=== PATIENT | female | born 2000 | race Caucasian/White ===

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

== ENCOUNTER 2022-03-08 11:19 | Emergency (ER) | payer BC ==
--- OUTSIDE RECORDS SUMMARY | 2022-03-08 11:21 | XMS REPORT | Continuity of Care Document ---
:2000 Author Organization [facility] t Address [address] [place] [address] Care Team Providers Name Role Phone SELINA SCHERER Primary Care Physician Unavailable Margarita Little PA-C Attending Clinician Baljeet Nielson MD Attending Clinician BALJEET NIELSON Attending Clinician Unavailable SELINA SCHERER Attending Clinician Unavailable Doctor Unassigned, [place] Attending Clinician Unavailable MARGARITA LITTLE Attending Clinician Unavailable SOURAV SYED Attending Clinician Unavailable Payers Payer Name Policy Type Policy Number Effective Date Expiration Date S ource Problems Condition Condition Condition Status Onset Resolution Last Treating Co mments Source Name Details Category Date Date Treatment Clinician Date Rash and Rash and Disease Active Unive rs other other 05-21 ity of nonspecifi [place] skin c skin 00 Medical eruption eruption Branch Encounter Encounter Disease Active Uni vers to to 05-21 [place] establish [place] Need for Need for Disease Active Unive rs hepatitis hepatitis 05-21 ity of C C 00:00: [place] screening screening 00 Medi marine test test Branch Obesity Obesity Disease Active 2019-03 Univers (BMI (BMI 2-14 ity of 30-39.9) 30-39.9) 00:00: [place] 00 Medical Branch Allergies, Adverse Reactions, Alerts Allergy Allergy Status Severity Reaction(s) Onset Inactive Treating Comm ents Source Name Type Date Date Clinician NO KNOWN Drug Active Univers ALLERGIE Class ity of S [facility] Social History Social Habit Start Date Stop Date Quantity Comments Source Exposure to Not sure University SARS-CoV-2 [place] [facility] (event) Branch Alcohol intake 2021-06-10 2021-06-10 Current [facility] 00:00:00 00:00:00 non-drinker of [facility] alcohol [place] (finding) Tobacco use and 2018-07-29 2018-07-29 Never used Universit y of exposure 00:00:00 00:00:00 [facility] Sex Assigned At [birth year] Universit y of 00:00:00 00:00:00 [facility] Smoking Status Start Date Stop Date Source Never smoker [facility] Medications Ordered Filled Start Stop Current Ordering Indication Dosage Frequency Signature Comments Components Source Medication Medication Date Date Medication? Clinician (SIG) Name Name metroNIDAZO 2019-03- No [id number] 500mg Take 1 Univers LE 500 mg 05-14 tablet by ity of tablet 00:00: 00:00 mouth [place] 00 :00 every 12 Medical (twelve) Branch hours. SERTraline 2021- No Univer s 100 mg 05-08 ity of tablet 00:00: 00:00 [place] 00 :00 [facility] Branch Immunizations Ordered Filled Immunization Date Status Comments Sourc e Immunization Name Name HPV9 2021-06-10 Completed [facility] 00:00:00 [facility] Vital Signs Vital Name Observation Time Observation Value Comments Source Systolic blood 2021-06-10 20:22:00 102 mm[Hg] Univer sity of pressure [facility] Diastolic blood 2021-06-10 20:22:00 68 mm[Hg] Unive rsity of pressure [facility] Heart rate 2021-06-10 20:22:00 100 /min [facility] Body temperature 2021-06-10 20:22:00 36.44 Kylah [facility] 2021-06-10 20:22:00 18 /min [facility] Body height 2021-06-10 20:22:00 167.6 cm [facility] Body weight 2021-06-10 20:22:00 60.782 kg [facility] BMI 2021-06-10 20:22:00 21.63 kg/m2 [facility] Procedures Procedure Date / Time Performed Performing Clinician Giselle lorenzo GARDASIL 9 (HPV 9V) 2021-06-10 21:06:54 Baljeet Nielson [facility] Encounters Start End Encounter Admission Attending Care Care Encounter Source Date/Time Date/Time Type Type Clinicians Facility Department ID 2021-06-11 2021-06-11 [facility] [id number] Univers 00:00:00 00:00:00 Management Margarita SOTELO [id number] ity [facility] [id number] [address] 2021-06-10 2021-06-10 Office Baljeet Nielson [facility] [id number] Univers 15:00:00 15:30:00 Visit Anthony SOTELO [id number] i ty [facility] [id number] [id number] [address] 2021-06-10 2021-06-10 Outpatient BALJEET MOY [facility] [id number] Univers 15:00:00 15:00:00 ity of [facility] 2021-06-10 2021-06-10 Outpatient BALJEET MOY [facility] [id number] Univers 15:00:00 15:00:00 ity of [facility] 2021-05-23 2021-05-23 Outpatient Jairo SCHERER [facility] [id number] Univers 07:45:00 07:45:00 SELINA miller [facility] 2021-05-21 2021-05-21 Outpatient Jairo SCHERER [facility] [id number] Univers 15:00:00 15:36:56 SELINA miller [facility] 2021-05-21 2021-05-21 Kirby SANTIZO [id number] Univers 00:00:00 00:00:00 Only Unassigned, GEOVANNY [id number] ity [facility] [id number] [place] as [id number] [address] 2021-03-05 2021-03-05 [facility] [id number] Univers 10:00:00 10:00:00 MARGARITA [facility] 2020-03-09 2020-03-09 [facility] [id number] Univers 13:00:00 13:00:00 SOURAV miller [facility] 2020-03-05 2020-03-05 Outpatient [facility] [id number] Univers 09:30:00 09:30:00 MARGARITA [facility] 2019-11-21 2019-11-21 Outpatient [facility] [id number] Univers 14:00:00 14:00:00 MARGARITA [facility] 2019-08-02 2019-08-02 Outpatient [facility] [id number] Univers 09:00:00 09:00:00 [facility] Results This patient has no known results.
[2022-03-08] MEDS ORDERED: NA CHLORIDE 0.9% 1,000 ML ONE ×2 (11:39→13:19)
[2022-03-08] MEDS ORDERED: LORazepam 2 MG/ML VIAL ONE ×2 (11:39→11:58)
[2022-03-08 11:41] LABS: Absolute Lymphocytes (CBC) 1.1 K/uL (0.7-4.9); Hematocrit 42.2 % (36.0-45.0); Lymphocytes % 11.2 % (15.3-44.8); MCV 89.6 fL (80-100); MPV 7.7 fL (7.6-11.3); RBC Red Blood Cell Count 4.71 M/uL (3.86-4.86)
[2022-03-08 11:46] LABS: Urine Blood Trace-intact (Negative); Urine Glucose Negative (Negative); Urine Protein 2+ (Negative); Urine Specific Gravity >=1.030 (1.005-1.030); Urine pH 5.5 (5.0-7.0)
[2022-03-08 11:50] LABS: Protime INR 1.18
[2022-03-08] MEDS ORDERED: ZIPRASIDONE MESYLA 20 MG/VIAL IM ONE (11:56)
[2022-03-08] MEDS ORDERED: WATER FOR INJ,STERILE 10 ML ONE (11:56)
[2022-03-08 12:00] LABS: ALT/SGPT 21 U/L (13-56); AST/SGOT 14 U/L (15-37); Albumin 4.8 g/dL (3.4-5.0); Alkaline Phosphatase 58 U/L (45-117); BUN Blood Urea Nitrogen 16 mg/dL (7-18); Bicarbonate 21 mmol/L (21-32); Bilirubin Direct 0.3 mg/dL (0-0.2); Bilirubin Total 1.1 mg/dL (0.2-1.0); Glomerular Filtration Rate 73 ml/min (=/>90); Glucose Level 188 mg/dL (74-106); Protein, Total 8.3 g/dL (6.4-8.2); Sodium Level 133 mmol/L (136-145)
[2022-03-08 12:01] LABS: Barbiturates NEGATIVE (NEGATIVE); Benzodiazepines NEGATIVE (NEGATIVE); Cocaine NEGATIVE (NEGATIVE); METHAMPHETAM NEGATIVE (NEGATIVE); Methadone NEGATIVE (NEGATIVE); Opiates NEGATIVE (NEGATIVE); Phencyclidine NEGATIVE (NEGATIVE); THC Cannibis POSITIVE (NEGATIVE)
[2022-03-08] MEDS ORDERED: KCL 20 MEQ/100 mL IVPB 100 ML IV ONE (13:19)
--- NOTE | 2022-03-08 13:32 | ER ---
Nurse's Notes [facility] Name: Annalee Figueroa Age: 22 yrs Sex: Female : 2000 Arrival Date: 03/08/2022 Time: 11:19 Bed 16 Private MD: Diagnosis: Acute stress reaction;Restlessness and agitation Presentation: 03/08 11:27 Chief complaint: Pt brought to ED by sister who states that their other sister was ph killed in a car accident approx 1 week ago, pt has recently started acting erratically, was found naked in street stating that she has had a spiritual awakening. Pt presents to ER w/ AMS, stating repeatedly, " My body is right here, I just need nourishment." Sister states that pt has not made any suicidal or homicidal statements, denies mental health hx, states that pt is a daily user of marijuana and occasional drinker. Coronavirus screen: Vaccine status: Patient reports being unvaccinated. Ebola Screen: No symptoms or risks identified at this time. Initial Sepsis Screen: Does the patient meet any 2 criteria? No. Patient's initial sepsis screen is negative. Does the patient have a suspected source of infection? No. Patient's initial sepsis screen is negative. Risk Assessment: Do you want to hurt yourself or someone else? Patient reports no desire to harm self or others. Onset of symptoms was March 08, 2022. 11:27 Method Of Arrival: Ambulatory 11:27 Acuity: LELIA 2 Triage Assessment: 11:35 General: Appears in no apparent distress. Behavior is anxious, restless. Pain: Unable ph to use pain scale. Does not appear to understand pain scale. Neuro: Level of Consciousness is awake, alert, obeys commands, Oriented to person, place, situation. Cardiovascular: Capillary refill < 3 seconds in bilateral fingers Patient's skin is warm and dry. Respiratory: Airway is patent Respiratory effort is even, labored. Historical: - Allergies: 11:34 No Known Allergies; ph - PMHx: 11:34 Anxiety; ph - Immunization history:: Adult Immunizations unknown. - Social history:: Smoking status: Patient denies any tobacco usage or history of. Patient uses alcohol, occasionally. street drugs, marijuana. - Family history:: not pertinent. - Hospitalizations: : No recent hospitalization is reported. Screenin:20 Abuse screen: Denies threats or abuse. Nutritional screening: No deficits noted. mb9 Tuberculosis screening: No symptoms or risk factors identified. 11:20 [facility] ED Fall Risk Assessment (Adult) History of falling in the last 3 months, mb9 including since admission No falls in past 3 months (0 pts) Confusion or Disorientation No (0 pts) Intoxicated or Sedated No (0 pts) Impaired Gait No (0 pts) Mobility Assist Device Used No (0 pt) Altered Elimination No (0 pt) Score/Fall Risk Level 0 - 2 = Low Risk. Assessment: 11:25 General: Appears uncomfortable, Behavior is anxious. General: pt states "I need mb9 nourishment for my body. I can't remember last time I ate or drank anything." Pt denies suicidal ideation. Pain: Denies pain. Neuro: Level of Consciousness is awake, alert, Oriented to person, place, time. Cardiovascular: Rhythm is sinus tachycardia. Respiratory: Airway is patent Respiratory effort is even, unlabored, Respiratory pattern is regular, symmetrical. GI: Abdomen is flat, non-distended, Bowel sounds present X 4 quads. : No signs and/or symptoms were reported regarding the genitourinary system. EENT: No signs and/or symptoms were reported regarding the EENT system. Derm: Skin is pink, warm \\T\\ dry. Musculoskeletal: Range of motion: intact in all extremities. 11:50 Reassessment: Reassessment: pt ran out of room after ripping her IV out and was shirt mb9 less. Pt unable to follow commands and be redirected. Pt biting and hitting the nurses. Pt attempting to run into other pts room. Pt entered another pts room attempting to jump on them, nurse able to restrain pt and remove from room with security officers assistance. 12:50 Pain: Denies pain. Neuro: Oriented to person, place, time. Cardiovascular: Rhythm is mb9 sinus tachycardia. Respiratory: Airway is patent. Derm: Skin is pink, warm \\T\\ dry. 12:50 Reassessment: pt currently sleeping. mb9 13:50 Reassessment: No changes from previously documented assessment. pt currently sleeping. mb9 Mom at bedside. Airway patent, respirations are even and unlabored. Rhythm is regular. 14:50 Reassessment: pt currently sleeping. Dad at bedside. Neuro:. Cardiovascular: Rhythm is mb9 regular. Respiratory: Airway is patent. Derm: Skin is pink, warm \\T\\ dry. 15:50 Reassessment: pt currently sleeping. Respirations are even and unlabored. Airway is mb9 patent. Rhythm is regular. Skin is dry, intact, and warm. Mom at beside. 15:57 Reassessment: Gave report to [facility] at [facility]. mb9 16:50 Reassessment: pt currently sleeping. Respirations are even and unlabored. Airway is mb9 patent. Rhythm is regular. Skin is dry, intact, and warm. Mom is at bedside. 17:50 Reassessment: Mother at bedside. Cardiovascular: Rhythm is regular. Respiratory: Airway mb9 is patent Respiratory effort is even, unlabored, Respiratory pattern is regular, symmetrical. Derm: Skin is pink, warm \\T\\ dry. Psych: 12:08 Subjective: Patient's mood is angry, irritable, Delusions are denied, Hallucinations mb9 are denied. Subjective: denies suicidal, homicidal ideation. Objective: Patient is uncooperative, aggressive, belligerent, combative, irritable, Speech is loud, rapid, Affect is inappropriate, pt ripped out IV. Interventions: Patient placed in hospital gown. Urine collected and sent for urine drug test. Restraints: Patient placed in soft restraints as ordered by physician. Patient's physical safety, cardiac and respiratory status will continue to be monitored while in restraints. Safety Checks: Door is open. Visitors are present. Pt denies substance abuse. Consultation: Hayley ANDERSON, notified. Vital Signs: 11:27 BP 156 / 98; Pulse 118; Resp 22; Temp 97.7; Pulse Ox 98% ; Weight 68.04 kg; Height 5 ph ft. 7 in. (170.18 cm); 11:30 BP 139 / 88; Pulse 101; Resp 19; Pulse Ox 100% ; mb9 12:00 BP 149 / 92; Pulse 114; Resp 20; Pulse Ox 99% ; mb9 12:06 BP 153 / 93; Pulse 124; Resp 20; Pulse Ox 99% ; mb9 12:15 BP 112 / 73; Pulse 96; Resp 20; Pulse Ox 100% ; mb9 13:15 BP 108 / 97; Pulse 80; Resp 19; Pulse Ox 98% ; mb9 14:15 BP 102 / 74; Pulse 75; Resp 18; Pulse Ox 100% ; mb9 15:15 BP 131 / 90; Pulse 80; Resp 18; Pulse Ox 100% ; mb9 16:14 BP 137 / 96; Pulse 83; Resp 18; Pulse Ox 100% ; mb9 11:27 Body Mass Index 23.49 (68.04 kg, 170.18 cm) ph ED Course: 11:19 Patient arrived in ED. [id number] 11:20 Krzysztof Hardy MD is Attending Physician. rn 11:20 Placed in gown. Bed in low position. Call light in reach. Side rails up X 1. mb9 11:26 Paty Dumont, RN is Primary Nurse. mb9 11:34 Triage completed. ph 11:35 Initial lab(s) drawn, by me, sent to lab. Inserted saline lock: 20 gauge in right kj1 antecubital area, using aseptic technique. Blood collected. 11:35 Arm band placed on Patient placed in an exam room. ph 13:38 faxed patient clinical's to the following facilities in attempt to find placement. [facility]/ [facility]/ and [facility]. 15:36 Carolyn from [facility] called to decline the patient in transfer/ they are at eb capacity/ if by some reason we can not get her placed they will try taking her Thursday. 15:51 connected Milan from the intake department from [facility] with Paty Singh for nurse to nurse. 16:18 No provider procedures requiring assistance completed. mb9 18:24 ADMINISTRATIVE APPROVAL GIVEN BY DENISE TOVAR/ PATIENT HAS BEEN ACCEPTED TO [facility]/ DR. MCCALL HAS ACCEPTED THE PATIENT IN TRANSFER. 19:50 IV discontinued. ke1 Restraints: 12:00 Violent/Self Destructive Restraint: Order: obtained. Initiated March 08, 2022 at aa5 12:00 Staff present during the Initiation of Restraint: Tami Sheikh RN, Eufemia Morales RN, Albina Hopkins, Paty Dumont, and Ghulam Soni. Family Notification/Education: Sister. Observed actions/behavior: destructive, violent, severely aggressive, harming self/others, repeated attempts to get up from bed/chair without assistance. Less restrictive alternatives attempted: decreased environmental stimuli, 1:1 patient care, placed near Nurse station, reoriented to location, family at bedside, medicated for pain/anxiety, verbal de-escalation performed, Alternative interventions: Ineffective. Clinical justification for use: Violent/self destructing behavior impacts therapeutic environment. Poses a serious danger to physical safety of self \\T\\ others. Monitoring: Mental status: agitated/restless, Cognition: poor judgement, poor safety awareness, Impulsive, Circulation: Within defined parameters (based on Cardiovascular assessment). Skin integrity: Within defined parameters (based on Integumentary assessment). 12:15 Violent/Self Destructive Restraint: Monitoring: Mental status: agitated/restless, mb9 Cognition: poor judgement, poor safety awareness, Impulsive, unable to follow commands, Circulation: Within defined parameters (based on Cardiovascular assessment). Skin integrity: Within defined parameters (based on Integumentary assessment) Restraint status: Soft wrist restraint (Right) Continued. Soft wrist restraint (Left) Continued. Soft ankle restraint (Right) Continued. Soft ankle restraint (Left) Continued. Readiness for Discontinue: Criteria not met. Patient still violent/self destructive and Alternative interventions still ineffective. Restraint continued. 12:30 Violent/Self Destructive Restraint: Monitoring: Mental status: agitated/restless, mb9 Cognition: poor judgement, poor safety awareness, Impulsive, unable to follow commands, Circulation: Within defined parameters (based on Cardiovascular assessment). Skin integrity: Within defined parameters (based on Integumentary assessment) Restraint status: Soft wrist restraint (Right) Continued. Soft wrist restraint (Left) Continued. Soft ankle restraint (Right) Continued. Soft ankle restraint (Left) Continued. 12:45 Violent/Self Destructive Restraint: Monitoring: Mental status: agitated/restless, mb9 Cognition: poor judgement, poor safety awareness, Impulsive, unable to follow commands, Circulation: Within defined parameters (based on Cardiovascular assessment). Skin integrity: Within defined parameters (based on Integumentary assessment) Restraint status: Soft wrist restraint (Right) Continued. Soft wrist restraint (Left) Continued. Soft ankle restraint (Right) Continued. Soft ankle restraint (Left) Continued. 13:00 Violent/Self Destructive Restraint: Monitoring: Mental status: agitated/restless, mb9 Cognition: poor judgement, poor safety awareness, Impulsive, unable to follow commands, Circulation: Within defined parameters (based on Cardiovascular assessment). Skin integrity: Within defined parameters (based on Integumentary assessment) Restraint status: Soft wrist restraint (Right) Continued. Soft wrist restraint (Left) Continued. Soft ankle restraint (Right) Continued. Soft ankle restraint (Left) Continued. 13:00 Violent/Self Destructive Restraint: Range of Motion: Performed. Hydration/Food: patient mb9 asleep. Elimination/Hygiene: patient asleep. 13:15 Violent/Self Destructive Restraint: Monitoring: Mental status: patient asleep, mb9 Cognition: Unable to assess. Circulation: Within defined parameters (based on Cardiovascular assessment). Skin integrity: Within defined parameters (based on Integumentary assessment) Restraint status: Soft wrist restraint (Right) Continued. Soft wrist restraint (Left) Discontinued. Soft ankle restraint (Right) Discontinued. Soft ankle restraint (Left) Discontinued. 13:30 Violent/Self Destructive Restraint: Monitoring: Mental status: patient asleep, mb9 Cognition: Unable to assess. Circulation: Within defined parameters (based on Cardiovascular assessment). Skin integrity: Within defined parameters (based on Integumentary assessment) Restraint status: Soft wrist restraint (Right) Continued. 13:45 Non-Violent Restraint: Restraint Discontinued on March 08, 2022 at 13:45 Effective mb9 alternative interventions implemented: decreased environmental stimuli, 1:1 patient care, placed near Nurse station, reoriented to location, family at bedside, medicated for pain/anxiety, repositioned, trained sitter in room, lines/tubes covered, eliminated unnecessary lines/tubes, verbal de-escalation performed. Administered Medications: 11:30 Drug: NS 0.9% 1000 ml Route: IV; Rate: 1000 ml; Site: right antecubital; mb9 14:11 Follow up: Response: No adverse reaction; IV Status: Completed infusion mb9 11:30 Drug: Ativan (LORazepam) 1 mg Route: IVP; Site: right antecubital; mb9 16:16 Follow up: Response: No adverse reaction mb9 11:50 Drug: Geodon (ziprasidone) 10 mg Route: IM; Site: right deltoid; mb9 16:16 Follow up: Response: No adverse reaction mb9 11:53 Drug: Ativan (LORazepam) 1 mg Route: IM; Site: left deltoid; mb9 16:16 Follow up: Response: No adverse reaction mb9 13:24 Drug: Potassium Chloride 20 mEq Route: IV; Rate: calculated rate; Site: right mb9 antecubital; 16:16 Follow up: Response: No adverse reaction; IV Status: Completed infusion mb9 14:10 Drug: NS 0.9% 1000 ml Route: IV; Rate: 1000 ml; Site: right antecubital; mb9 16:16 Follow up: Response: No adverse reaction; IV Status: Completed infusion mb9 Medication: 16:18 VIS not applicable for this client. mb9 Outcome: 13:31 ER care complete, transfer ordered by MD. rn 19:50 Transferred by ground EMS ke1 19:50 Condition: good 19:50 Instructed on the need for transfer. 19:51 Patient left the ED. ke1 Signatures: Krzysztof Hardy MD MD rn Calderon, Audri, RN RN [email or web address] Elza Miller RN Renate Wagner ph4 Mattie Chaves Kandis [email or web address] Dayton Mckeon RN RN ke1 Tim, Paty Singh RN RN [email or web address] Corrections: (The following items were deleted from the chart) 14:53 12:30 Violent/Self Destructive Restraint: Monitoring: Mental status: agitated/restless, mb9 Cognition: poor judgement, poor safety awareness, Impulsive, unable to follow commands, Circulation: Within defined parameters (based on Cardiovascular assessment). Skin integrity: Within defined parameters (based on Integumentary assessment) mb9 14:53 12:45 Violent/Self Destructive Restraint: Monitoring: Mental status: agitated/restless, mb9 Cognition: poor judgement, poor safety awareness, Impulsive, unable to follow commands, Circulation: Within defined parameters (based on Cardiovascular assessment). Skin integrity: Within defined parameters (based on Integumentary assessment) mb9 15:55 12:00 Violent/Self Destructive Restraint: Order: obtained. Initiated March 08, 2022 aa5 at 12:00 Staff present during the Initiation of Restraint: Tami Gordon RN, Eufemia Morales RN, Albina Hopkins, Paty Dumont, and Ghulam Soni. Family Notification/Education: Sister. Observed actions/behavior: destructive, violent, severely aggressive, harming self/others, repeated attempts to get up from bed/chair without assistance. Less restrictive alternatives attempted: decreased environmental stimuli, 1:1 patient care, placed near Nurse station, reoriented to location, family at bedside, medicated for pain/anxiety, verbal de-escalation performed, Alternative interventions: Ineffective. Clinical justification for use: Violent/self destructing behavior impacts therapeutic environment. Poses a serious danger to physical safety of self \\T\\ others. Monitoring: Mental status: agitated/restless, Cognition: poor judgement, poor safety awareness, Impulsive, Circulation: Within defined parameters (based on Cardiovascular assessment). Skin integrity: Within defined parameters (based on Integumentary assessment) mb9 15:56 12:00 Violent/Self Destructive Restraint: Order: obtained. Initiated March 08, 2022 aa5 at 12:00 Staff present during the Initiation of Restraint: Tami Sheikh RN, Eufemia Morales RN, Albina Hopkins, Paty Dumont, and Ghulam Soni. Family Notification/Education: Sister. Observed actions/behavior: destructive, violent, severely aggressive, harming self/others, repeated attempts to get up from bed/chair without assistance. Less restrictive alternatives attempted: decreased environmental stimuli, 1:1 patient care, placed near Nurse station, reoriented to location, family at bedside, medicated for pain/anxiety, verbal de-escalation performed, Alternative interventions: Ineffective. Clinical justification for use: Violent/self destructing behavior impacts therapeutic environment. Poses a serious danger to physical safety of self \\T\\ others. Monitoring: Mental status: agitated/restless, Cognition: poor judgement, poor safety awareness, Impulsive, Circulation: Within defined parameters (based on Cardiovascular assessment). Skin integrity: Within defined parameters (based on Integumentary assessment) aa5 16:34 15:51 connected the intake department from [facility] with Paty webster nurse to nurse. eb
--- NOTE | 2022-03-08 13:32 | EDPHYS ---
Physician Documentation [facility] Name: Annalee Figueroa Age: 22 yrs Sex: Female : 2000 Arrival Date: 03/08/2022 Time: 11:19 Bed 16 Private MD: ED Physician Krzysztof Hardy HPI: 03/08 11:44 This 22 yrs old Female presents to ER via Ambulatory with complaints of Psych Problem. rn 11:44 The patient presents to the emergency department with anxiety. rn 11:45 Onset: The symptoms/episode began/occurred yesterday. Associated signs and symptoms: rn Pertinent positives; anxiety, Pertinent negatives: abdominal pain, chest pain, hallucinations, homicidal ideation, shortness of breath, suicide ideation. Severity of symptoms: At their worst the symptoms were moderate in the emergency department the symptoms are unchanged. The patient has not experienced similar symptoms in the past. The patient has not recently seen a physician. family reports sister 1 week ago in car accident, recently patient has exhibited erratic behavior, walking in street naked, paranoid, not making sense, not eating or drinking. Smoke marijuana regularly but denies other drugs. NO overdose. No psychiatric history. Denies suicidal or homicidal ideations.. Historical: - Allergies: 11:34 No Known Allergies; ph - PMHx: 11:34 Anxiety; ph - Immunization history:: Adult Immunizations unknown. - Social history:: Smoking status: Patient denies any tobacco usage or history of. Patient uses alcohol, occasionally. street drugs, marijuana. - Family history:: not pertinent. - Hospitalizations: : No recent hospitalization is reported. ROS: 11:45 Constitutional: Negative for fever, chills, and weight loss, Eyes: Negative for injury, rn pain, redness, and discharge, Neck: Negative for injury, pain, and swelling, Cardiovascular: Negative for chest pain, palpitations, and edema, Respiratory: Negative for shortness of breath, cough, wheezing, and pleuritic chest pain, Abdomen/GI: Negative for abdominal pain, nausea, vomiting, diarrhea, and constipation, Back: Negative for injury and pain, MS/Extremity: Negative for injury and deformity, Skin: Negative for injury, rash, and discoloration, Neuro: Negative for headache, weakness, numbness, tingling, and seizure, Psych: Negative for suicide ideation, homicidal ideation Exam: 11:45 Constitutional: This is a well developed, well nourished patient who is awake, alert, rn agitated but easy to redirect Head/Face: Normocephalic, atraumatic. Eyes: no nystagmus ENT: dry MM Cardiovascular: Tachycardic, regular Respiratory: Hyperventilating, no wheezing or retractions Abdomen/GI: Soft, non-tender Skin: Warm, dry MS/ Extremity: Pulses equal, no cyanosis. Neuro: Awake and alert, GCS 15, oriented to person, place, time, and situation. Cranial nerves II-XII grossly intact. Motor strength 5/5 in all extremities. Sensory grossly intact. 13:05 ECG was reviewed by the Attending Physician. rn Vital Signs: 11:27 BP 156 / 98; Pulse 118; Resp 22; Temp 97.7; Pulse Ox 98% ; Weight 68.04 kg; Height 5 ph ft. 7 in. (170.18 cm); 11:30 BP 139 / 88; Pulse 101; Resp 19; Pulse Ox 100% ; mb9 12:00 BP 149 / 92; Pulse 114; Resp 20; Pulse Ox 99% ; mb9 12:06 BP 153 / 93; Pulse 124; Resp 20; Pulse Ox 99% ; mb9 12:15 BP 112 / 73; Pulse 96; Resp 20; Pulse Ox 100% ; mb9 13:15 BP 108 / 97; Pulse 80; Resp 19; Pulse Ox 98% ; mb9 14:15 BP 102 / 74; Pulse 75; Resp 18; Pulse Ox 100% ; mb9 15:15 BP 131 / 90; Pulse 80; Resp 18; Pulse Ox 100% ; mb9 16:14 BP 137 / 96; Pulse 83; Resp 18; Pulse Ox 100% ; mb9 11:27 Body Mass Index 23.49 (68.04 kg, 170.18 cm) ph MDM: 11:20 Patient medically screened. rn 12:02 ED course: After receiving first ativan dose, patient became more agitated and rn attempted to run into another patient's room, diverted by nursing staff and security, order for geodon and more ativan given and administered. . 13:30 Differential diagnosis: acute psychotic break, depression. Data reviewed: vital signs, rn nurses notes, lab test result(s), and as a result, I will admit patient. Counseling: I had a detailed discussion with the patient and/or guardian regarding: the historical points, exam findings, and any diagnostic results supporting the discharge/admit diagnosis, lab results, radiology results, the need to transfer to another facility, for higher level of care, [facility] does not immediately have the required specialist. Response to treatment: the patient's symptoms have markedly improved after treatment, and as a result, I will admit patient. 03/08 11:29 Order name: Acetaminophen; Complete Time: 13: 03/08 11:29 Order name: Basic Metabolic Panel; Complete Time: 13: 03/08 11:29 Order name: CBC with Diff; Complete Time: 12: 03/08 11:29 Order name: ETOH Level; Complete Time: 13: 03/08 11:29 Order name: Hepatic Function; Complete Time: 13: 03/08 11:29 Order name: PT-INR; Complete Time: 12: 03/08 11:29 Order name: Ptt, Activated; Complete Time: 12: 03/08 11:29 Order name: Salicylate; Complete Time: 13: 03/08 11:29 Order name: Urine Drug Screen; Complete Time: 12: 03/08 11:46 Order name: Glucose, Ancillary Testing; Complete Time: 12:02 [facility] 03/08 11:46 Order name: Urine Dipstick-Ancillary; Complete Time: 12:02 [facility] 03/08 12:26 Order name: Urine --Ancillary (enter results); Complete Time: 20:06 03/08 15:21 Order name: SARS RAPID; Complete Time: 20:06 03/08 11:29 Order name: EKG; Complete Time: 11:30 03/08 11:29 Order name: EKG - Nurse/Tech; Complete Time: 11:34 03/08 11:29 Order name: IV Saline Lock; Complete Time: 11:34 03/08 11:29 Order name: Labs collected and sent; Complete Time: 11:34 03/08 11:29 Order name: Suicide Screening ([place]); Complete Time: 11:34 03/08 11:29 Order name: Urine Dipstick-Ancillary (obtain specimen); Complete Time: 11:48 rn 03/08 11:29 Order name: Urine Test (obtain specimen); Complete Time: 11:48 rn 03/08 11:29 Order name: Glucose Level; Complete Time: 11:34 rn 03/08 12:08 Order name: Restraint:Violent/Self Destructive (Adult:18yo or >); Complete Time: 12:08 mb9 EC:05 Rate is 96 beats/min. Rhythm is regular. QRS [place] is Normal. OR interval is normal. QRS rn interval is normal. QT interval is normal. No Q waves. T waves are Normal. No ST changes noted. Clinical impression: Normal ECG. Interpreted by me. Reviewed by me. Administered Medications: 11:30 Drug: NS 0.9% 1000 ml Route: IV; Rate: 1000 ml; Site: right antecubital; mb9 14:11 Follow up: Response: No adverse reaction; IV Status: Completed infusion mb9 11:30 Drug: Ativan (LORazepam) 1 mg Route: IVP; Site: right antecubital; mb9 16:16 Follow up: Response: No adverse reaction mb9 11:50 Drug: Geodon (ziprasidone) 10 mg Route: IM; Site: right deltoid; mb9 16:16 Follow up: Response: No adverse reaction mb9 11:53 Drug: Ativan (LORazepam) 1 mg Route: IM; Site: left deltoid; mb9 16:16 Follow up: Response: No adverse reaction mb9 13:24 Drug: Potassium Chloride 20 mEq Route: IV; Rate: calculated rate; Site: right mb9 antecubital; 16:16 Follow up: Response: No adverse reaction; IV Status: Completed infusion mb9 14:10 Drug: NS 0.9% 1000 ml Route: IV; Rate: 1000 ml; Site: right antecubital; mb9 16:16 Follow up: Response: No adverse reaction; IV Status: Completed infusion mb9 Disposition Summary: 03/08/22 13:31 Transfer Ordered Transfer Location: Psych Facility rn Reason: Higher level of care rn Condition: Stable rn Problem: new rn Symptoms: have improved rn Accepting Physician: Dr. [facility](03/08/22 19:51) ke1 Diagnosis - Acute stress reaction rn - Restlessness and agitation rn Forms: - Medication Reconciliation Form rn - SBAR form rn Signatures: Dispatcher [employer] EDKrzysztof Moe MD MD rn Hall, Patricia, RN RN ph Mattie Chaves Kouassi, RN RN ke1 Deborah Cordova PA-C PAIleana [email or web address] Paty Dumont RN RN mb9 Corrections: (The following items were deleted from the chart) 18: 13:31 Dr. roseanna pastrana 18:29 18:27 Dr. CAL pastrana 19:51 18:29 Dr. CAL pastrana ke1
[2022-03-08 16:05] LABS: SARS-CoV-2 Antigen Rapid Res Negative (Negative)
[2022-03-08 19:56] VITALS: TEMP 97.7
[2022-03-08 20:03] VITALS: O2SAT 100
[2022-03-08 20:05] VITALS: BP 137/96
--- NOTE | 2022-03-09 15:51 | EKG ---
Test Date: 2022-03-08 Test Time: 11:32:54 Political Research Scientist: MB MEASUREMENT RESULTS: Intervals: Rate: 96 HI: 146 QRSD: 86 QT: 348 QTc: 439 [place]: P: 61 HI: 146 QRS: 77 T: 41 INTERPRETIVE STATEMENTS: Normal sinus rhythm with sinus arrhythmia Normal ECG Compared to ECG 02/01/2018 18:13:59 ST (T wave) deviation no longer present Electronically Signed On 03-09-22 15:50:32 PRIMARY OPERATOR by Alfonso Gamboa
== END 2022-03-08 19:51 ==
LOC: ER 11:19
DX: F43.0 Acute stress reaction (principal); R45.1 Restlessness and agitation; Z20.822 Contact with and (suspected) exposure to COVID-19
CPT/HCPCS: 93005; 85025; 80048; 36415; 80320; 80329 ×2; 81025; 85610; 82947; 80076; 85730; 81003; 80307; 87811; J3480; J3486; J7030 ×2; 96361; 96365; 96366; 96372; 96375; 99285

== ENCOUNTER → 2023-04-16 | Emergency (ER) | payer BC, SELFPAY ==
[~2023-04-16] MED LIST: LORazepam 2 MG/ML VIAL ONE; NA CHLORIDE 0.9% 1,000 ML ONE; WATER FOR INJ,STERILE 10 ML ONE; ZIPRASIDONE MESYLA 20 MG/VIAL IM ONE
--- OUTSIDE RECORDS SUMMARY | 2023-04-16 20:17 | XMS REPORT | Continuity of Care Document ---
Author Name Unknown Address [address] [facility] [address] [place] [address] [facility] thconnect Address [address] [facility] 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 Name Role Phone Pcp, Patient Does Not Have A Primary Care Physic laura SELINA SCHERER Attending Clinician Unavailable Doctor Unassigned, Benitez Attending Clinician U MAURA Pires Attending Clinician Unavailable BAY CRUZ Attending Clinician Unavailable Margarita Joshi PA-C Attending Clinician [phone] Baljeet Nielson MD Attending Clinician [phone] BALJEET NIELSON Attending Clinician Unavailable MARGARITA JOSHI Attending Clinician Unavailable SOURAV SYED Attending Clinician Unavailable Payers Payer Name Policy Type Policy Number Effective Date Expirati on Date Source [facility] [id number] 2017 00:00:00 Problems Condition Name Condition Details Condition Category Status Onset Date Resolution Date Last Treatment Date Treating Clinician Comments Source Rash and other nonspecifi c skin eruption Rash and other nonspecifi c skin eruption Disease Active 05-21 00:00: 00 [facility] Encounter to establish care Encounter to establish care Disease Active 05-21 00:00: 00 [facility] Need for hepatitis C screening test Need for hepatitis C screening test Disease Active 05-21 00:00: 00 [facility] Obesity (BMI 30-39.9) Obesity (BMI 30-39.9) Disease Active 2019-03 00:00: 00 [facility] Allergies, Adverse Reactions, Alerts Allergy Name Allergy Type Status Severity Reaction(s) Onset Date Inactive Date Treating Clinician Comments Source NO KNOWN ALLERGIE S Drug Class Active [facility] Family History Family Member Diagnosis Comments Start Date Stop Date Sourc e Natural father Asthma [facility] Maternal grandmother Breast Cancer [facility] Paternal grandmother Heart [facility] Paternal grandmother Hypertension [facility] Social History Social Habit Start Date Stop Date Quantity Comments Source Gender identity [facility] Exposure to SARS-CoV-2 (event) 2022-05-04 00:00:00 2022-05-14 10:01:00 Not sure [facility] History of Social function 2022-05-14 00:00:00 2022-05-14 00:00:00 [facility] Alcohol intake 2020-03-05 00:00:00 2020-03-05 00:00:00 Current non-drinker of alcohol (finding) [facility] Tobacco use and exposure 2018-07-29 00:00:00 2018-07-29 00:00:00 Smokeless tobacco non-user [facility] Sex Assigned At 2000 00:00:00 2000 00:00:00 [facility] Smoking Status Start Date Stop Date Source Never smoked tobacco [facility] Medications Ordered Medication Name Filled Medication Name Start Date Stop Date Current Medication? Ordering Clinician Indication Dosage Frequency Signature (SIG) Comments Components Source azithromyci n (ZITHROMAX) tablet 1,000 mg 11-16 23:30: 00 11-16 23:31 :00 No 1000mg 1,000 mg, Oral, ONCE, 1 dose, On 11/16/22 at 1830, CLARY
Re ason for Anti-Infec tive: Empiric Therapy for Suspected Infection< br>Empiric Therapy Site: Pelvic
Duration of therapy: 72 hours [facility] cefTRIAXone (ROCEPHIN) injection 500 mg 11-16 23:15: 00 11-16 23:31 :00 No 500mg 500 mg, Intramuscu lar, ONCE, 1 dose, On 11/16/22 at 1830, CLARY
Re ason for Anti-Infec tive: Empiric Therapy for Suspected Infection< br>Empiric Therapy Site: Urine
D uration of therapy: 72 hours [facility] doxycycline hyclate 100 mg capsule 11-16 00:00: 00 11-24 04:59 :00 No [id number] 100mg Take 1 capsule by mouth in the morning and 1 capsule in the evening. Do all this for 7 days. [facility] doxycycline hyclate 100 mg capsule 11-16 00:00: 00 11-24 04:59 :00 No [id number] 100mg Take 1 capsule by mouth in the morning and 1 capsule in the evening. Do all this for 7 days. [facility] doxycycline hyclate 100 mg capsule 11-16 00:00: 00 11-24 04:59 :00 No [id number] 100mg Take 1 capsule by mouth in the morning and 1 capsule in the evening. Do all this for 7 days. [facility] hydrOXYzine 50 mg capsule 10-17 00:00: 00 Yes [id number] 50mg Take 1 capsule by mouth 2 (two) times daily as needed for Itching. [facility] hydrOXYzine 50 mg capsule 0 10-17 00:00: 00 Yes [id number] 50mg Take 1 capsule by mouth 2 (two) times daily as needed for Itching. [facility] hydrOXYzine 50 mg capsule 0 10-17 00:00: 00 Yes [id number] 50mg Take 1 capsule by mouth 2 (two) times daily as needed for Itching. [facility] hydrOXYzine 50 mg capsule 10-17 00:00: 00 Yes [id number] 50mg Take 1 capsule by mouth 2 (two) times daily as needed for Itching. [facility] hydrOXYzine 50 mg capsule 2022-0 7-28 00:00: 00 Yes [id number] 50mg Take 1 capsule by mouth 2 (two) times daily as needed for Itching. [facility] hydr[facility]ine [facility] mg capsule 2022-0 6-08 00:00: 00 10-15 00:00 :00 No [id number] 50mg Take 1 capsule by mouth 2 (two) times daily as needed for Itching. [facility] hydrOXYzine 50 mg capsule 0 4-09 00:00: 00 Yes [id number] 50mg Take 1 capsule by mouth 2 (two) times daily as needed for Itching. [facility] hydrOXYzine 50 mg capsule 0 -09 00:00: 00 Yes [id number] 50mg Take 1 capsule by mouth 2 (two) times daily as needed for Itching. [facility] mirtazapine (REMERON ORAL) 0 05-14 10:10: 26 Yes Take by mouth daily. [facility] mirtazapine (REMERON ORAL) 0 05-14 10:10: 26 Yes Take by mouth daily. [facility] mirtazapine (REMERON ORAL) 0 05-14 10:10: 26 Yes Take by mouth daily. [facility] mirtazapine (REMERON ORAL) 0 05-14 10:10: 26 Yes Take by mouth daily. [facility] mirtazapine (REMERON ORAL) 0 - 10:10: 26 Yes Take by mouth daily. [facility] mirtazapine (REMERON ORAL) 0 - 10:10: 26 Yes Take by mouth daily. [facility] mirtazapine (REMERON ORAL) 0 05-14 10:10: 26 Yes Take by mouth daily. [facility] mirtazapine (REMERON ORAL) 0 2- 10:10: 26 Yes Take by mouth daily. [facility] mirtazapine (REMERON ORAL) 202305-14 10:10: 26 Yes Take by mouth daily. [facility] mirtazapine (REMERON ORAL) 05-14 10:10: 26 Yes Take by mouth daily. [facility] mirtazapine (REMERON ORAL) 05-14 10:10: 26 Yes Take by mouth daily. [facility] mirtazapine (REMERON ORAL) 05-14 10:10: 26 Yes Take by mouth daily. [facility] aripiprazol e (ABILIFY ORAL) 05-14 10:08: 34 05-14 00:00 :00 No Take by mouth daily. [facility] aripiprazol e (ABILIFY ORAL) 05-14 10:08: 34 05-14 00:00 :00 No Take by mouth daily. [facility] aripiprazol e (ABILIFY ORAL) 05-14 10:08: 34 05-14 00:00 :00 No Take by mouth daily. [facility] aripiprazol e (ABILIFY ORAL) 05-14 10:08: 34 05-14 00:00 :00 No Take by mouth daily. [facility] ARIPiprazol e (ABILIFY) 10 mg tablet 05-14 00:00: 00 Yes [id number] 10mg Take 1 tablet by mouth at bedtime. [facility] ARIPiprazol e (ABILIFY) 10 mg tablet 05-14 00:00: 00 Yes [id number] 10mg Take 1 tablet by mouth at bedtime. [facility] ARIPiprazol e (ABILIFY) 10 mg tablet 05-14 00:00: 00 Yes [id number] 10mg Take 1 tablet by mouth at bedtime. [facility] ARIPiprazol e (ABILIFY) 10 mg tablet 05-14 00:00: 00 Yes [id number] 10mg Take 1 tablet by mouth at bedtime. [facility] ARIPiprazol e (ABILIFY) 10 mg tablet 2022-0 2- 00:00: 00 Yes [id number] 10mg Take 1 tablet by mouth at bedtime. [facility] ARIPiprazol e (ABILIFY) 10 mg tablet 2022-0 2 00:00: 00 Yes [id number] 10mg Take 1 tablet by mouth at bedtime. [facility] ARIPiprazol e (ABILIFY) 10 mg tablet 2022-0 05-14 00:00: 00 Yes [id number] 10mg Take 1 tablet by mouth at bedtime. [facility] ARIPiprazol e (ABILIFY) 10 mg tablet 2022-0 05-14 00:00: 00 Yes [id number] 10mg Take 1 tablet by mouth at bedtime. [facility] ARIPiprazol e (ABILIFY) 10 mg tablet 2022-0 05-14 00:00: 00 Yes [id number] 10mg Take 1 tablet by mouth at bedtime. [facility] ARIPiprazol e (ABILIFY) 10 mg tablet 2022-0 05-14 00:00: 00 Yes [id number] 10mg Take 1 tablet by mouth at bedtime. [facility] ARIPiprazol e (ABILIFY) 10 mg tablet 2022-0 05-14 00:00: 00 Yes [id number] 10mg Take 1 tablet by mouth at bedtime. [facility] ARIPiprazol e (ABILIFY) 10 mg tablet 2022-0 05-14 00:00: 00 Yes [id number] 10mg Take 1 tablet by mouth at bedtime. [facility] hydrOXYzine 50 mg capsule 2022-0 2- 00:00: 00 Yes [id number] 50mg Take 1 capsule by mouth 2 (two) times daily as needed for Itching. [facility] hydrOXYzine 50 mg capsule 3-0 2- 00:00: 00 Yes [id number] 50mg Take 1 capsule by mouth 2 (two) times daily as needed for Itching. [facility] hydrOXYzine 50 mg capsule 3-0 2-03 00:00: 00 Yes [id number] 50mg Take 1 capsule by mouth 2 (two) times daily as needed for Itching. [facility] hydrOXYzine 50 mg capsule 3-0 2-03 00:00: 00 Yes [id number] 50mg Take 1 capsule by mouth 2 (two) times daily as needed for Itching. [facility] hydrOXYzine 50 mg capsule 2022-0 2-03 00:00: 00 Yes [id number] 50mg Take 1 capsule by mouth 2 (two) times daily as needed for Itching. [facility] hydrOXYzine 50 mg capsule 2022-0 2- 00:00: 00 Yes [id number] 50mg Take 1 capsule by mouth 2 (two) times daily as needed for Itching. [facility] hydrOXYzine 50 mg capsule 2022-0 2- 00:00: 00 Yes [id number] 50mg Take 1 capsule by mouth 2 (two) times daily as needed for Itching. [facility] hydrOXYzine 50 mg capsule 2022-0 2- 00:00: 00 06-26 00:00 :00 No [id number] 50mg Take 1 capsule by mouth 2 (two) times daily as needed for Itching. [facility] hydrOXYzine 50 mg capsule 2022-0 2-03 00:00: 00 06-26 00:00 :00 No [id number] 50mg Take 1 capsule by mouth 2 (two) times daily as needed for Itching. [facility] aripiprazol e (ABILIFY ORAL) 0 2- 09:25: 20 Yes Take by mouth daily. [facility] mirtazapine (REMERON ORAL) 0 2- 09:25: 20 Yes Take by mouth daily. [facility] aripiprazol e (ABILIFY ORAL) 0 2- 09:25: 20 Yes Take by mouth daily. [facility] mirtazapine (REMERON ORAL) 0 2- 09:25: 20 Yes Take by mouth daily. [facility] aripiprazol e (ABILIFY ORAL) 0 2 09:25: 20 Yes Take by mouth daily. [facility] mirtazapine (REMERON ORAL) 04-23 09:25: 20 Yes Take by mouth daily. [facility] aripiprazol e (ABILIFY ORAL) 04-23 09:25: 20 Yes Take by mouth daily. [facility] mirtazapine (REMERON ORAL) 04-23 09:25: 20 Yes Take by mouth daily. [facility] ARIPiprazol e (ABILIFY) 10 mg tablet 04-23 00:00: 00 Yes [id number] 10mg Take 1 tablet by mouth at bedtime. [facility] ARIPiprazol e (ABILIFY) 10 mg tablet 04-23 00:00: 00 Yes [id number] 10mg Take 1 tablet by mouth at bedtime. [facility] ARIPiprazol e (ABILIFY) 10 mg tablet 04-23 00:00: 00 Yes [id number] 10mg Take 1 tablet by mouth at bedtime. [facility] ARIPiprazol e (ABILIFY) 10 mg tablet 04-23 00:00: 00 Yes [id number] 10mg Take 1 tablet by mouth at bedtime. [facility] ARIPiprazol e (ABILIFY) 10 mg tablet 04-23 00:00: 00 05-14 00:00 :00 No [id number] 10mg Take 1 tablet by mouth at bedtime. [facility] ARIPiprazol e (ABILIFY) 10 mg tablet 2 00:00: 00 05-14 00:00 :00 No [id number] 10mg Take 1 tablet by mouth at bedtime. [facility] ARIPiprazol e (ABILIFY) 10 mg tablet 2023-0 2-01 00:00: 00 05-14 00:00 :00 No [id number] 10mg Take 1 tablet by mouth at bedtime. [facility] ARIPiprazol e (ABILIFY) 10 mg tablet 2022-0 2-01 00:00: 00 05-14 00:00 :00 No [id number] 10mg Take 1 tablet by mouth at bedtime. [facility] metroNIDAZO LE 500 mg tablet 0 3- 00:00: 00 Yes [id number] 500mg Take 1 tablet by mouth every 12 (twelve) hours. [facility] metroNIDAZO LE 500 mg tablet 0 06-11 00:00: 00 Yes [id number] 500mg Take 1 tablet by mouth every 12 (twelve) hours. [facility] metroNIDAZO LE 500 mg tablet 2021-0 06-11 00:00: 00 Yes [id number] 500mg Take 1 tablet by mouth every 12 (twelve) hours. [facility] metroNIDAZO LE 500 mg tablet 2021-0 06-11 00:00: 00 Yes [id number] 500mg Take 1 tablet by mouth every 12 (twelve) hours. [facility] metroNIDAZO LE 500 mg tablet 0 06-11 00:00: 00 05-14 00:00 :00 No [id number] 500mg Take 1 tablet by mouth every 12 (twelve) hours. [facility] metroNIDAZO LE 500 mg tablet 2021-0 - 00:00: 00 05-14 00:00 :00 No [id number] 500mg Take 1 tablet by mouth every 12 (twelve) hours. [facility] metroNIDAZO LE 500 mg tablet 2021-0 3 00:00: 00 05-14 00:00 :00 No [id number] 500mg Take 1 tablet by mouth every 12 (twelve) hours. [facility] metroNIDAZO LE 500 mg tablet 2021-0 3-22 00:00: 00 05-14 00:00 :00 No [id number] 500mg Take 1 tablet by mouth every 12 (twelve) hours. [facility] metroNIDAZO LE 500 mg tablet 2019-03 00:00: 00 06-10 00:00 :00 No [id number] 500mg Take 1 tablet by mouth every 12 (twelve) hours. [facility] SERTraline 100 mg tablet 05-08 00:00: 00 06-10 00:00 :00 No [facility] SERTraline 100 mg tablet 05-08 00:00: 00 06-10 00:00 :00 No [facility] Immunizations Ordered Immunization Name Filled Immunization Name Date Status Comments Source HPV9 2021-06-10 00:00:00 Completed [facility] HPV9 2021-06-10 00:00:00 Completed [facility] HPV9 2021-06-10 00:00:00 Completed [facility] 2021-06-10 00:00:00 Completed [facility] HPV9 2021-06-10 00:00:00 Completed [facility] HPV9 2021-06-10 00:00:00 Completed [facility] HPV9 2021-06-10 00:00:00 Completed [facility] HPV9 2021-06-10 00:00:00 Completed [facility] HPV9 2021-06-10 00:00:00 Completed [facility] HPV9 2021-06-10 00:00:00 Completed [facility] HPV9 2021-06-10 00:00:00 Completed [facility] HPV9 2021-06-10 00:00:00 Completed [facility] HPV9 2021-06-10 00:00:00 Completed [facility] HPV9 2021-06-10 00:00:00 Completed [facility] HPV9 2021-06-10 00:00:00 Completed [facility] HPV9 2021-06-10 00:00:00 Completed [facility] HPV9 Unknown Completed [facility] Vital Signs Vital Name Observation Time Observation Value Comments S ource Systolic blood pressure 2022-11-16 23:33:06 113 mm[Hg] [facility] Diastolic blood pressure 2022-11-16 23:33:06 72 mm[Hg] [facility] Heart rate 2022-11-16 23:33:06 72 /min [facility] Body temperature 2022-11-16 23:33:06 36.39 Kylah [facility] Respiratory rate 2022-11-16 23:33:06 14 /min [facility] Oxygen saturation in Arterial blood by Pulse oximetry 2022-11-16 23:33:06 98 /min [facility] Body height 2022-11-16 21:29:00 167.6 cm [facility] Body weight 2022-11-16 21:29:00 74.844 kg [facility] BMI 2022-11-16 21:29:00 26.63 kg/m2 [facility] Systolic blood pressure 2021-06-10 20:22:00 102 mm[Hg] [facility] Diastolic blood pressure 2021-06-10 20:22:00 68 mm[Hg] [facility] Heart rate 2021-06-10 20:22:00 100 /min [facility] Body temperature 2021-06-10 20:22:00 36.44 Kylah [facility] Respiratory rate 2021-06-10 20:22:00 18 /min [facility] Body height 2021-06-10 20:22:00 167.6 cm [facility] Body weight 2021-06-10 20:22:00 60.782 kg [facility] BMI 2021-06-10 20:22:00 21.63 kg/m2 [facility] Systolic blood pressure 2022-11-16 23:33:06 113 mm[Hg] [facility] Diastolic blood pressure 2022-11-16 23:33:06 72 mm[Hg] [facility] Heart rate 2022-11-16 23:33:06 72 /min [facility] Body temperature 2022-11-16 23:33:06 36.39 Kylah [facility] Respiratory rate 2022-11-16 23:33:06 14 /min [facility] Oxygen saturation in Arterial blood by Pulse oximetry 2022-11-16 23:33:06 98 /min [facility] Body height 2022-11-16 21:29:00 167.6 cm [facility] Body weight 2022-11-16 21:29:00 74.844 kg [facility] BMI 2022-11-16 21:29:00 26.63 kg/m2 [facility] Systolic blood pressure 2022-05-14 16:07:00 95 mm[Hg] [facility] Diastolic blood pressure 2022-05-14 16:07:00 64 mm[Hg] [facility] Heart rate 2022-05-14 16:07:00 85 /min [facility] Respiratory rate 2022-05-14 16:07:00 18 /min [facility] Body height 2022-05-14 16:07:00 167.6 cm [facility] Body weight 2022-05-14 16:07:00 75.751 kg [facility] BMI 2022-05-14 16:07:00 26.95 kg/m2 [facility] Systolic blood pressure 2022-04-23 15:13:00 106 mm[Hg] [facility] Diastolic blood pressure 2022-04-23 15:13:00 73 mm[Hg] [facility] Heart rate 2022-04-23 15:13:00 74 /[facility] Respiratory rate 2022-04-23 15:13:00 18 /min [facility] Body height 2022-04-23 15:13:00 167.6 cm [facility] Body weight 2022-04-23 15:13:00 72.938 kg [facility] BMI 2022-04-23 15:13:00 25.95 kg/m2 [facility] Body temperature 2021-06-10 20:22:00 36.44 Kylah [facility] Oxygen saturation in Arterial blood by Pulse oximetry 2021-05-21 21:17:00 98 /min [facility] Procedures Procedure Date / Time Performed Performing Clinician Source GC & CHLAMYDIA AMPLIFIED ASSAY 2022-11-16 22:01:00 Maura Car [facility] POCT TEST 2022-11-16 22:00:00 Janett Car [facility] POCT TEST 2022-11-16 22:00:00 Janett Car [facility] ASSIGNMENT OF BENEFITS 2022-11-16 21:56:48 Docto r Unassigned, Benitez [facility] ASSIGNMENT OF BENEFITS 2022-11-16 21:56:48 Docto r Unassigned, Benitez [facility] URINALYSIS 2022-11-16 21:41:00 Maura Car [facility] URINALYSIS 2022-11-16 21:41:00 Maura Car [facility] CONSENT/REFUSAL FOR DIAGNOSIS AND TREATMENT 2022-11-16 21:17:20 Doctor Unassigned, Benitez [facility] CONSENT/REFUSAL FOR DIAGNOSIS AND TREATMENT 2022-11-16 21:17:20 Doctor Unassigned, Benitez [facility] AUTHORIZATION TO RELEASE PHI TO [facility] 2022-05-14 06:01:00 Doctor Unassigned, Benitez [facility] AUTHORIZATION TO RELEASE PHI TO [facility] 2022-05-14 06:01:00 Doctor Unassigned, Benitez [facility] PATIENT INFORMATION 2022-04-23 06:01:00 Doctor Unassigned, Benitez [facility] PATIENT INFORMATION 2022-04-23 06:01:00 Doctor Unassigned, Benitez [facility] AUTHORIZATION FOR RELEASE OF PHI 2022-04-23 06:01:00 Doctor Unassigned, Benitez [facility] GARDASIL 9 (HPV 9V) VACCINE 2021-06-10 21:06:54 Baljeet Nielson [facility] Encounters Start Date/Time End Date/Time Encounter Type Admission Type Attending [facility] Care Facility Care Department Encounter ID Source 2022-11-26 10:30:00 2022-11-26 10:30:[address] [facility] [id number] [facility] 2022-11-18 00:00:00 2022-11-18 00:00:00 Patient Secure Msg Doctor Unassigned, Benitez [facility] 1.2.840.114 350.1.13.10 4.2.7.2.686 [id number] [facility] 2022-11-16 16:27:00 2022-11-16 18:35:00 Emergency X AMANDA CARINE [facility] [id number] [facility] 2022-11-16 16:27:00 2022-11-16 18:35:00 Emergency Maura Car 1.2.840.1 [id number] .[id number] [facility] 2022-11-16 00:00:00 2022-11-16 00:00:00 Travel 1.2.840.1 [id number] 3.104.2.7 .[id number] .8 1.2.840.114 350.1.13.10 4.2.7.3.698 [id number] [facility] 2022-09-17 14:15:00 2022-09-17 14:15:[address] [facility] [id number] [facility] 2022-06-04 10:45:00 2022-06-04 10:45:[address] [facility] [id number] [facility] 2022-05-14 10:45:00 2022-05-14 11:04:[address] [facility] [id number] [facility] 2022-05-14 00:00:00 2022-05-14 00:00:00 Travel 1.2.840.1 [id number] 3.104.2.7 .[id number] .8 1.2.840.114 350.1.13.10 4.2.7.3.698 [id number] [facility] 2022-05-14 00:00:00 2022-05-14 00:00:00 Orders Only Doctor Unassigned, Benitez 1.2.840.1 [id number] 3.104.2.7 .[id number] .[id number] [facility] 2022-04-23 09:15:00 2022-04-23 10:13:[address] [facility] [id number] [facility] 2022-04-23 00:00:00 2022-04-23 00:00:00 Orders Only Doctor Unassigned, Benitez 1.2.840.1 [id number] 3.104.2.7 .3.858030 .8 [id number] [facility] 2022-04-23 00:00:00 2022-04-23 00:00:00 Travel 1.2.840.1 [id number] 3.104.2.7 .[id number] .8 1.2.840.114 350.1.13.10 4.2.7.3.698 [id number] [facility] 2021-06-11 00:00:00 2021-06-11 00:00:00 Case Management Margarita Joshi [facility] 1.2.840.114 350.1.13.10 4.2.7.2.686 [id number] [facility] 2021-06-10 15:00:00 2021-06-10 15:30:00 Office Visit Baljeet Nielson [facility] 1.2.840.114 350.1.13.10 4.2.7.2.686 [id number] [facility] 2021-06-10 15:00:00 2021-06-10 15:00:00 Outpatient R NISREEN BALJEET [facility] [id number] [facility] 2021-06-10 15:00:00 2021-06-10 15:00:[address] [facility] [id number] [facility] 2021-05-23 07:45:00 2021-05-23 07:45:[address] [facility] [id number] [facility] 2021-05-21 15:00:00 2021-05-21 15:36:[address] [facility] [id number] [facility] 2021-05-21 00:00:00 2021-05-21 00:00:00 Orders Only Doctor Unassigned, Benitez [facility] 1.2.840.114 350.1.13.10 4.2.7.2.686 [id number] [facility] 2021-03-05 10:00:00 2021-03-05 10:00:[address] [facility] [id number] [facility] 2020-03-09 13:00:00 2020-03-09 13:00:[address] [facility] [id number] [facility] 2020-03-08 00:00:00 2020-03-08 00:00:00 Patient Secure Msg Doctor Unassigned, Benitez [facility] 1..840.114 350.1.13.10 4.2.7.2.686 [id number] [facility] 2020-03-05 09:30:00 2020-03-05 09:30:00 Outpatient Jairo JOSHI [facility] [id number] [facility] 2019-11-21 14:00:00 2019-11-21 14:00:[address] [facility] [id number] [facility] 2019-08-02 09:00:00 2019-08-02 09:00:00 Outpatient R MARGARITA JOSHI [facility] [id number] [facility] Results Test Description Test Time Test Comments Results Result Co [facility]ments [id number]* Test Item Value Reference Range Interpretation Comme nts POCT PREG (test code = 1605) Negative On board controls acceptable with C Line (test code = 3574) Yes POCT PREG LOT # (test code = 3575) [id number] POCT PREG TEST DATE ( test code = 3576) 03/25/2024 Lab Interpretation (test cod e = 67334-1) [id number] 22:00:00* Test Item Value Reference Range Interpretation Comme nts POCT PREG (test code = 1605) Negative On board controls acceptable with C Line (test code = 3574) Yes POCT PREG LOT # (test code = 3575) [id number] POCT PREG TEST DATE ( test code = 3576) 03/25/2024 Lab Interpretation (test cod e = [id number]) Normal [facility] Notes Date/Time Note Provider Source 2022-11-16 18:33:55 [id number] tVe1jmpCeaKp2 zf5fmRU/FyMhgsZI1RbEuqyKeNNge1v10 12-11-26T18:33:55 Written/verbal d/c instructions, out to lobby to wait x 15 min then may leave no s'/s/ reaction, pt no distress, alert cheerful [id number] department RiqbYJ4629-83-13G72:34:35Emergen y department [id number]. [id number] for patient [id number] M. Barton RN[id number]- 27T18:34:351.2.840.242327.1.72.3. 15|[id number]. [id number] Stacy Marks RN [facility] 2022-11-16 16:27:46 UCj28S/dOlT+VYkXXbsc ErTI2CCKe0fdb RCySRDxh7Zi2hk4MV/zHg4w/b1cj4CK00 12-11-26T16:27:46 Pt to ed with family. Alert and ambulatory. Vss. C/o difficulty with urination. Pressure and frequency. Onset approx 2 weeks. Denies n/v/f. Denies pain or visible blood in urine [id number] department Triage uyycJV0392-29-33N34:28:57Emerkaiser permanente [facility] department Triage [id number]. [id number] for patient [id number] department [id number] A Paul RN[id number] [id number]- 27T16:28:571.2.840.641313.1.72.3. 15|[id number]. [id number] Tye Francis RN [facility]"
[2023-04-16 22:24] LABS: Specific Gravity < 1.005 (1.005-1.030)
[2023-04-16 22:34] LABS: Barbiturates NEGATIVE (NEGATIVE); Benzodiazepines NEGATIVE (NEGATIVE); Cocaine NEGATIVE (NEGATIVE); METHAMPHETAM NEGATIVE (NEGATIVE); Methadone NEGATIVE (NEGATIVE); Opiates NEGATIVE (NEGATIVE); Phencyclidine NEGATIVE (NEGATIVE); THC Cannibis POSITIVE (NEGATIVE)
[2023-04-16 23:07] LABS: Absolute Lymphocytes (CBC) 1.1 K/uL (0.7-4.9); Hematocrit 33.8 % (36.0-45.0); MCV 88.9 fL (80-100); MPV 8.3 fL (7.6-11.3); Platelets 225 thou/uL (152-406); RBC Red Blood Cell Count 3.81 M/uL (3.86-4.86)
[2023-04-16 23:11] LABS: Protime INR 1.23
[2023-04-16 23:34] LABS: ALT/SGPT 18 U/L (13-56); AST/SGOT 8 U/L (15-37); Alkaline Phosphatase 41 U/L (45-117); BUN Blood Urea Nitrogen 6 mg/dL (7-18); Bicarbonate 23 mEq/L (21-32); Bilirubin Direct 0.2 mg/dL (0-0.2); Bilirubin Indirect, Calculated 0.4 mg/dL (0.2-0.8); Bilirubin Total 0.6 mg/dL (0.2-1.0); Glomerular Filtration Rate 133 ml/min (=/>90); Glucose Level 103 mg/dL (74-106); Potassium 3.4 mEq/L (3.5-5.1); Protein, Total 6.7 g/dL (6.4-8.2); Sodium Level 137 mEq/L (136-145)
--- NOTE | 2023-04-17 00:54 | EDPHYS ---
Physician Documentation [facility] Name: Annalee Figueroa Age: 23 yrs Sex: Female : 2000 Arrival Date: 04/16/2023 Time: 20:13 Bed 5 Private MD: ED Physician Mervin Briceno HPI: 04/16 23:07 This 23 yrs old Female presents to ER via Ambulatory with complaints of Altered Mental kdr Status, INSOMNIA. 23:07 About a year ago the patient had a older sister who was killed in a car accident. kdr Shortly after that she had her first episode of insomnia and altered mental status. She was sedated at that time and ultimately transferred to a psychiatric facility. Patient was on some outpatient medication for few months but subsequently had not followed up with a physician and not been on the medications. For the past few days the patient has been in a state similar to what she had been seen for last year. She is not sleeping and appears to have altered mental status. Patient does smoke marijuana on a regular basis according to her records but otherwise is not on any medication right now. Patient is confused and clearly altered. Patient has brief episodes where she closes her eyes and flutters her eyelids and then awakens again and is slow to converse and appears to be somewhat paranoid. Patient otherwise is not in any acute distress. Onset: The symptoms/episode began/occurred gradually, 4 day(s) ago. Severity of symptoms: At their worst the symptoms were moderate incapacitating in the emergency department the symptoms are unchanged. The patient has experienced similar episodes in the past, several times, with the last episode occurring last year, The anniversary of her sister's just passed recently as well as she had a recent break-up with her boyfriend. The patient has not recently seen a physician. Historical: - Allergies: 20:29 No Known Allergies; tl4 - Home Meds: 20:29 None [Active]; tl4 - PMHx: 20:29 Anxiety; tl4 - PSHx: 20:29 None; tl4 - Immunization history:: Adult Immunizations unknown. - Social history:: Smoking status: Reported history of juuling and/or vaping. ROS: 23:07 Constitutional: Negative for fever, chills, and weight loss, Eyes: Negative for injury, kdr pain, redness, and discharge, Neck: Negative for injury, pain, and swelling, Cardiovascular: Negative for chest pain, palpitations, and edema, Respiratory: Negative for shortness of breath, cough, wheezing, and pleuritic chest pain, Abdomen/GI: Negative for abdominal pain, nausea, vomiting, diarrhea, and constipation, Back: Negative for injury and pain, : Negative for injury, bleeding, discharge, and swelling, MS/Extremity: Negative for injury and deformity, Skin: Negative for injury, rash, and discoloration, Neuro: Negative for headache, weakness, numbness, tingling, and seizure activity. Allergy/Immunology: Negative for hives, rash, and allergies, Endocrine: Negative for neck swelling, polydipsia, polyuria, polyphagia, and marked weight changes, 23:07 Neuro: Positive for altered mental status, Negative for loss of consciousness, seizure activity, tremor, 23:07 Psych: Positive for insomnia, Paranoia and confusion, Negative for suicide gesture, suicidal ideation, Exam: 23:07 Constitutional: This is a well developed, well nourished patient who is awake, alert, kdr and in no acute distress. Head/Face: Normocephalic, atraumatic. Eyes: Pupils equal round and reactive to light, extra-ocular motions intact. Lids and lashes normal. Conjunctiva and sclera are non-icteric and not injected. Cornea within normal limits. Periorbital areas with no swelling, redness, or edema. Neck: Trachea midline, no thyromegaly or masses palpated, and no cervical lymphadenopathy. Supple, full range of motion without nuchal rigidity, or vertebral point tenderness. No Meningismus. Chest/axilla: Normal chest wall appearance and motion. Nontender with no deformity. No lesions are appreciated. Cardiovascular: Regular rate and rhythm with a normal S1 and S2. No gallops, murmurs, or rubs. Normal PMI, no JVD. No pulse deficits. Respiratory: Lungs have equal breath sounds bilaterally, clear to auscultation and percussion. No rales, rhonchi or wheezes noted. No increased work of breathing, no retractions or nasal flaring. Abdomen/GI: Soft, non-tender, with normal bowel sounds. No distension or tympany. No guarding or rebound. No evidence of tenderness throughout. Back: No spinal tenderness. No costovertebral tenderness. Full range of motion. Skin: Warm, dry with normal turgor. Normal color with no rashes, no lesions, and no evidence of cellulitis. MS/ Extremity: Pulses equal, no cyanosis. Neurovascular intact. Full, normal range of motion. Neuro: Awake and alert, GCS 15, oriented to person, place, time, and situation. Cranial nerves II-XII grossly intact. Motor strength 5/5 in all extremities. Sensory grossly intact. Cerebellar exam normal. Normal gait. Psych: Awake, alert, with orientation to person, place and time. Behavior, mood, and affect are within normal limits. Vital Signs: 20:23 BP 136 / 88; Pulse 96; Resp 18; Temp 98.1(O); Weight 68.04 kg; Height 5 ft. 6 in. ; tl4 Pain 3/10; 22:15 BP 112 / 90; Pulse 84; Pulse Ox 98% on R/A; tm6 23:09 BP 137 / 103; Pulse 93; Pulse Ox 98% on R/A; tm6 23:58 BP 133 / 96; Pulse 103; Pulse Ox 98% on R/A; tm6 04/17 01:10 BP 96 / 54; Pulse 83; Pulse Ox 97% on R/A; tm6 04/16 20:23 Body Mass Index 24.21 (68.04 kg, 167.64 cm) tl4 04/16 20:23 Pain Scale: Adult tl4 MDM: 04/16 23:07 Data reviewed: vital signs, nurses notes, lab test result(s). kdr 04/17 00:53 Patient medically screened. kdr 00:55 ED course: Patient has been sleeping comfortably in the room. Even with me talking to kdr her friend in the room she has not awakened. We discussed discharge and they were agreeable to taking the patient to her parents for her rest. Patient otherwise was stable and not requiring further medication at this time. Vital signs are stable. Patient was discharging reasonable condition as stable. 02:54 ED course: Patient's mother arrived at bedside. Patient continue to be confused and kdr reluctant to be discharged. She did express one-time her desire to be admitted for psychiatric care. Patient denies suicidal or homicidal ideation. Her family was very adamant that she not be transferred to a psychiatric facility. Patient had been transferred in this fashion on a prior visit for about a year ago and the family was very unhappy with the outcome. Patient's mother confirmed this information in general. Patient's mother also contributed that the patient was having auditory hallucinations from time to time. Patient had not mentioned this previously. The options of transfer were offered for discharge with follow-up. The patient's mother was very adamant that she was comfortable taking the patient home and would follow-up with her [facility] psychiatrist today to arrange for an appointment and possible out or inpatient treatment. Patient remained stable in the ED and did not require further intervention. She was noted that on the prior admission prior to her transfer the patient been given 1 mg of Ativan IV and 1 mg IM. Patient was also given 10 mg of Geodon. After our initial treatment regimen here I considered adding Geodon to the treatment plan however the patient was fully asleep at the time that the nurse went to administer the medication. Patient was subsequently discharged home in stable condition with her mother. Her mother was supportive of the process and plan.. 04/16 20:55 Order name: Acetaminophen; Complete Time: 23:53 [facility] 04/16 20:55 Order name: Basic Metabolic Panel; Complete Time: 23:53 [facility] 04/16 20:55 Order name: CBC with Diff; Complete Time: 23: [facility] 04/16 20:55 Order name: ETOH Level; Complete Time: 02:54 [facility] 04/16 20:55 Order name: Hepatic Function; Complete Time: 23:53 [facility] 04/16 20:55 Order name: PT-INR; Complete Time: 23: [facility] 04/16 20:55 Order name: Test, Urine; Complete Time: 22:37 [facility] 04/16 20:55 Order name: Ptt, Activated; Complete Time: 23: [facility] 04/16 20:55 Order name: Salicylate; Complete Time: 22:37 [facility] 04/16 20:55 Order name: Urine Drug Screen; Complete Time: 22:37 [facility] 04/16 20:55 Order name: IV Saline Lock; Complete Time: :59 [facility] 04/16 20:55 Order name: Labs collected and sent; Complete Time: :59 [facility] 04/16 20:55 Order name: Suicide Screening ([place]); Complete Time: :59 kdr Administered Medications: 04/16 22:15 Drug: NS 0.9% IV 1000 ml IV at 1 bolus Per protocol; 1000 mL bolus Route: IV; Rate: 1 tm6 bolus; Site: right antecubital; 04/17 01:40 Follow up: IV Intake: 1000ml tm6 04/16 22:15 Drug: Ativan IVP 2 mg IVP once Route: IVP; Site: right antecubital; tm6 22:56 Drug: Ativan IVP 1 mg IVP once Route: IVP; Site: right antecubital; tm6 04/17 00:06 Not Given (Other Intervention Used): [id number] mg IM once jb4 00:55 Not Given (patient sleeping): [id number] mg IM once tm6 Disposition Summary: 04/17/23 00:53 Discharge Ordered Problem: an acute exacerbation kdr Symptoms: have improved kdr Condition: Stable kdr Diagnosis - Insomnia kdr - Insomnia, unspecified kdr Followup: kdr - With: Private Physician - When: 2 - 3 days - Reason: If symptoms return, Further diagnostic work-up, Recheck today's complaints, Continuance of care, Re-evaluation by your physician Discharge Instructions: - Discharge Summary Sheet kdr - Insomnia kdr Forms: - Medication Reconciliation Form kdr - Thank You Letter kdr - Patient Portal Instructions kdr - Leadership Thank You Letter kdr Prescriptions: - Ativan 1 mg Oral tablet - take 1 tablet ORAL route every 8 hours As needed; 6 tablet; Refills: 0, Product kdr Selection Permitted Signatures: Dispatcher [employer] Mervin Haskins MD MD kdr Reji Mccullough, RN RN jb4 Maura Mcnulty RN RN tm6 Valdemar Hubbard tl4
--- NOTE | 2023-04-17 00:54 | ER ---
Nurse's Notes [facility] Name: Annalee Figueroa Age: 23 yrs Sex: Female : 2000 Arrival Date: 04/16/2023 Time: 20:13 Bed 5 Private MD: Diagnosis: Insomnia;Insomnia, unspecified Presentation: 04/16 20:23 Chief complaint: Patient states: Pt states anxiety has gotten worse since Thursday and tl4 she has not been able to sleep. Pt states she has stopped communicating with people. Pt also c/o ongoing head, chest and abdominal pain that has gotten worse this week. Coronavirus screen: Vaccine status: Patient reports being unvaccinated. Ebola Screen: Patient negative for fever greater than or equal to 101.5 degrees Fahrenheit, and additional compatible Ebola Virus Disease symptoms Patient denies exposure to infectious person. Patient denies travel to an Ebola-affected area in the 21 days before illness onset. No symptoms or risks identified at this time. Initial Sepsis Screen: Does the patient meet any 2 criteria? No. Patient's initial sepsis screen is negative. Does the patient have a suspected source of infection? No. Patient's initial sepsis screen is negative. Risk Assessment: Do you want to hurt yourself or someone else? Patient reports no desire to harm self or others. Onset of symptoms was April 14, 2023. 20:23 Method Of Arrival: Ambulatory tl4 20:23 Acuity: LELIA 3 tl4 Triage Assessment: 20:34 General: Appears distressed, Behavior is anxious, difficulty maintaining attention. tl4 Pain: Denies pain. EENT: No deficits noted. No signs and/or symptoms were reported regarding the EENT system. Neuro: Reports inability to maintain attention. Cardiovascular: Reports chest pain. Respiratory: Denies cough, shortness of breath. GI: No deficits noted. No signs and/or symptoms were reported involving the gastrointestinal system. : No deficits noted. No signs and/or symptoms were reported regarding the genitourinary system. Derm: No deficits noted. No signs and/or symptoms reported regarding the dermatologic system. Historical: - Allergies: 20:29 No Known Allergies; tl4 - Home Meds: 20:29 None [Active]; tl4 - PMHx: 20:29 Anxiety; tl4 - PSHx: 20:29 None; tl4 - Immunization history:: Adult Immunizations unknown. - Social history:: Smoking status: Reported history of juuling and/or vaping. Screenin:15 [facility] ED Fall Risk Assessment (Adult) History of falling in the last 3 months, tm6 including since admission No falls in past 3 months (0 pts). Abuse screen: Denies threats or abuse. Denies injuries from another. Nutritional screening: No deficits noted. Tuberculosis screening: No symptoms or risk factors identified. Assessment: 22:15 General: Appears in no apparent distress. Behavior is calm, cooperative, flat, quiet. tm6 Pain: Denies pain. Neuro: Level of Consciousness is awake, alert, obeys commands, Oriented to person, place, time, situation, Reports has not slept in 50 hours, not making sense. Cardiovascular: Capillary refill < 3 seconds Patient's skin is warm and dry. Respiratory: Airway is patent Respiratory effort is even, unlabored, Respiratory pattern is regular, symmetrical. GI: Abdomen is flat, non-distended. : No signs and/or symptoms were reported regarding the genitourinary system. EENT: No signs and/or symptoms were reported regarding the EENT system. EENT: No signs and/or symptoms were reported regarding the EENT system. Derm: No signs and/or symptoms reported regarding the dermatologic system. Musculoskeletal: No signs and/or symptoms reported regarding the musculoskeletal system. 23:09 Reassessment: patient asking "is my sister here? Is my brother here? I'm freaked out by tm6 the heart monitor.". 04/17 00:35 Reassessment: patient has eyes closed. tm6 01:11 Reassessment: patient has eyes closed. tm6 01:36 Reassessment: Patient has eyes closed. Mother does not want patient to be woken up. tm6 03:12 Reassessment: Patient appears in no apparent distress at this time. Patient and/or jb4 family updated on plan of care and expected duration. Pain level reassessed. Patient is alert, oriented x 3, equal unlabored respirations, skin warm/dry/pink. Pt and mother both report wanting to go home. Pt is back and forth wanting to be transferred and wanting to go home. pt states " I just want to sleep." and continues to refuse to leave ED. ED physician offered multiple times to transfer pt to psych facility. Both mother and pt report wanting to go home. Pt continues to change her mind when asked if ready to go home. Mother verbalized understanding of D/c and follow up instructions. Pt denies HI or SI and continues to state she would rather be at home with her family. Pt is A\\T\\Ox4, assisted to mothers car via wheel chair. Psych: 04/16 20:23 [place] Suicide Severity Screening: In the past month, have you wished you were tm6 or wished you could go to sleep and not wake up? Patient responds "No." "In the past month, have you actually had any thoughts of killing yourself?" Patient responds "no." "In your lifetime, have you ever done anything, started to do anything, or prepared to do anything to end your life?" Patient responds "no.". Vital Signs: 20:23 BP 136 / 88; Pulse 96; Resp 18; Temp 98.1(O); Weight 68.04 kg; Height 5 ft. 6 in. ; tl4 Pain 3/10; 22:15 BP 112 / 90; Pulse 84; Pulse Ox 98% on R/A; tm6 23:09 BP 137 / 103; Pulse 93; Pulse Ox 98% on R/A; tm6 23:58 BP 133 / 96; Pulse 103; Pulse Ox 98% on R/A; tm6 04/17 01:10 BP 96 / 54; Pulse 83; Pulse Ox 97% on R/A; tm6 04/16 20:23 Body Mass Index 24.21 (68.04 kg, 167.64 cm) tl4 04/16 20:23 Pain Scale: Adult tl4 ED Course: 04/16 20:17 Patient arrived in ED. jj6 20:22 Mervin Briceno MD is Attending Physician. kdr 20:29 Triage completed. tl4 20:36 Arm band placed on right wrist. tl4 22:15 Patient has correct armband on for positive identification. Bed in low position. Call tm6 light in reach. Side rails up X2. Adult w/ patient. Provided Education on: plan of care. Client placed on continuous cardiac and pulse oximetry monitoring. NIBP monitoring applied. pvc monitor on. Door closed. Noise minimized. Lights dimmed. Warm blanket given. 22:15 No provider procedures requiring assistance completed. Inserted saline lock: 20 gauge tm6 in right antecubital area, using aseptic technique. 22:51 Maura Mcnulty, RN is Primary Nurse. tm6 04/17 03:16 IV discontinued, intact, bleeding controlled, No redness/swelling at site. Pressure jb4 dressing applied. Administered Medications: 04/16 22:15 Drug: NS 0.9% IV 1000 ml IV at 1 bolus Per protocol; 1000 mL bolus Route: IV; Rate: 1 tm6 bolus; Site: right antecubital; 04/17 01:40 Follow up: IV Intake: 1000ml tm6 04/16 22:15 Drug: Ativan IVP 2 mg IVP once Route: IVP; Site: right antecubital; tm6 22:56 Drug: Ativan IVP 1 mg IVP once Route: IVP; Site: right antecubital; tm6 04/17 00:06 Not Given (Other Intervention Used): zazyyt72 mg IM once jb4 00:55 Not Given (patient sleeping): luyvgi68 mg IM once tm6 Medication: 04/16 22:15 VIS not applicable for this client. tm6 Intake: 04/17 01:40 IV: 1000ml; Total: 1000ml. tm6 Outcome: 00:53 Discharge ordered by . kdr 03:16 Discharged to home via wheelchair, jb4 03:16 Condition: stable 03:16 Discharge instructions given to patient, family, Instructed on discharge instructions, follow up and referral plans. medication usage, Demonstrated understanding of instructions, follow-up care, medications, Prescriptions given X 1, 03:17 Patient left the ED. jb4 Signatures: Mervin Briceno MD MD kdr Bryson, James, RN RN jb4 Amanda Ramos j6 Maura Mcnulty, RN RN 6 [place], Valdemar [facility]
[2023-04-17 03:58] VITALS: TEMP 98.1
[2023-04-17 04:25] VITALS: BP 96/54; O2SAT 97
== END ==
LOC: ER 20:13
DX: G47.00 Insomnia, unspecified (principal); Z87.891 Personal history of nicotine dependence
CPT/HCPCS: 36415; 80048; 80076; 80143; 80179; 80307; 81025; 82077; 85025; 85610; 85730; 96374; 99285; J7030